=== PATIENT | male | born 1995 | race Caucasian/White ===

== ENCOUNTER 2019-03-08 22:55 | Observation (INO) ==
--- NOTE | 2019-03-08 23:09 | PROVIDER DOCUMENTATION ---
This chart was entered by Anh Frazier Scribe, acting as scribe for Dequan Holt MD. [id number] Abuse/Overdose - General Chief Complaint: Overdose Stated Complaint: possible overdose Time Seen by Provider: 03/08/19 23:01 Source: patient, EMS Allergies/Adverse Reactions: Allergies Allergy/AdvReac Type Severity Reaction Status Date / Time No Known Allergies Allergy Verified 03/08/19 23:01 Home Medications: Home Medication List Medication Instructions Recorded Confirmed Last Taken Type NK [No Home Medications] 03/08/19 03/08/19 Unknown History - History of Present Illness-Drug/Alcohol Nature of Presenting Problem: 23 yom presents w/ems w/cc poss heroin overdose. ems sts pt using heroin, pt family tried to take him somewhere to get help and ran away. pt dad was arrested yest. ems sts pt seems very "jumpy." pt sts uses heroin 1-2hrs ago and was found by pd on . pt was evicted from where he was living, stayed with grandpa until he . pt has visible track castellano left arm. pt smokes 1/2 ppd. This episode of drinking or use began:: 1-3 hours ago Severity: reports: mild - Substance Abuse Substance Use: reports: other (heroin) Review of Systems - Adult - REVIEW OF SYSTEMS - ADULT Constitutional: reports: no symptoms reported Eyes: reports: no symptoms reported Ears, Nose, Mouth & Throat: reports: no symptoms reported Cardiovascular: reports: no symptoms reported Respiratory: reports: no symptoms reported Gastrointestinal: reports: no symptoms reported Genitourinary: reports: no symptoms reported Musculoskeletal: reports: no symptoms reported Integumentary: reports: no symptoms reported Neurological: reports: no symptoms reported Psychiatric: reports: see HPI, alcohol/drug dependence. denies: insomnia, panic attacks, suicidal thoughts Endocrine: reports: no symptoms reported Hematologic/Lymphatic: reports: no symptoms reported Allergic/Immunologic: reports: no symptoms reported All Other Systems: Reviewed and Negative Past History - Adult - PAST MEDICAL HISTORY-ADULT Review of Records: reports: Old Records Reviewed, Nursing Assessment Review, Medications Reviewed, Social history reviewed & non-contributory. Major Childhood Illnesses: reports: denies history Cardiovascular: reports: denies history Respiratory: reports: denies history Gastrointestinal: reports: denies history Obstetrical/Gynecological: reports: denies history Genitourinary: reports: denies history Musculoskeletal: reports: denies history Neurological: reports: denies history Endocrine/Immune: reports: denies history Other Conditions: reports: denies history - IMMUNIZATION STATUS Childhood Immunizations: See Nurse Assessment Flu Vaccine: See Nurse Assessment - FAMILY HISTORY Family History: reviewed, not pertinent - SOCIAL HISTORY Smoking: cigarettes, less than 1 pack/day Provider spent 3-5 mins advising pt. on dangers of tobacco.: Discussed manners to quit use, and f/u contacts for add'l counseling. Substance Use: other (heroin) Living Situation: other (unstable living situation) Physical Exam-General - PHYSICAL EXAM-ADULT Initial Vital Signs Reviewed: Yes - CONSTITUTIONAL General Appearance: appears well, alert, no apparent distress, thin. negative: slow to respond, obtunded, combative - EYES Eyes: PERRL/EOMI, pink conjunctivae - HEAD, EARS, NOSE, MOUTH & THROAT HENMT: normocephalic/atraumatic, moist mucous membranes, normal ENT inspection - NECK Neck: non-tender, full range of motion, supple, normal inspection - RESPIRATORY Respiratory: chest non-tender, lungs clear, normal breath sounds - CARDIOVASCULAR Cardiovascular: normal peripheral pulses, no edema, no gallop, no JVD, no murmur , tachycardia. negative: regular rate, rhythm, JVD, bradycardia - GASTROINTESTINAL (ABDOMEN) Abdominal Exam: normal bowel sounds, non tender, soft - LYMPHATIC Lymphatic: no adenopathy - MUSCULOSKELETAL Back Exam: normal inspection, no CVA tenderness, no vertebral tenderness Extremity: normal range of motion, non-tender, normal inspection Peripheral Pulses: radial (R): 2+, radial (L): 2+ - SKIN Integumentary: normal color, normal turgor, warm/dry, other (track castellano left arm). negative: laceration(s), swelling, tenderness - NEUROLOGIC Neurologic: grossly normal, no motor/sensory deficits - PSYCHIATRIC Psych/Mental Status: normal mood/affect, normal thought content, normal thought process, oriented x 3 Progress - PLAN OF CARE/RESULTS Progress/Plan/Lab Results: Vital Signs - 8 hr 03/08/19 22:56 Temperature 98.1 F Pulse Rate 122 H Respiratory Rate 20 Blood Pressure 127/106 O2 Sat by Pulse Oximetry 97 Laboratory Results - last 24 hr 03/08/19 03/08/19 03/08/19 23:05 23:05 23:05 WBC 8.59 RBC 4.82 Hgb 13.7 L Hct 39.9 L MCV 82.8 MCH 28.4 MCHC 34.3 RDW Std Deviation 13.3 Plt Count 280 MPV 10.7 H Immature Gran % (Auto) 0.2 Neut % (Auto) 61.4 Lymph % (Auto) 24.2 [place] % (Auto) 10.4 H Eos % (Auto) 3.1 Baso % (Auto) 0.7 Immature Gran # (Auto) 0.02 Neut # (Auto) 5.27 Lymph # (Auto) 2.08 [place] # (Auto) 0.89 H Eos # (Auto) 0.27 Baso # (Auto) 0.06 Sodium 140 Potassium 3.7 Chloride 103 Carbon Dioxide 27 Anion Gap 11 BUN 13 Creatinine 1.0 Estimated GFR/1.73 m2 > 60 BUN/Creatinine Ratio 13 Glucose 105 H Calculated Osmolality 280 Calcium 8.7 L Total Bilirubin 0.90 AST 76 H ALT 140 H Alkaline Phosphatase 90 Total Protein 6.9 Albumin 4.4 Globulin 3.0 Albumin/Globulin Ratio 2.0 Salicylates < 3.00 L Urine Opiates Screen Ur Oxycodone Screen Urine Methadone Screen U Propoxyphene Qual Acetaminophen < 1.2 L Ur Barbituates Screen Ur Tricyclics Screen Ur Phencyclidine Scrn Ur Amphetamines Screen U Methamphetamines Scrn U Benzodiazepines Scrn Urine Cocaine Screen U Cannabinoids Screen Plasma/Serum Ethyl Alc 03/09/19 00:05 WBC RBC Hgb Hct MCV MCH MCHC RDW Std Deviation Plt Count MPV Immature Gran % (Auto) Neut % (Auto) Lymph % (Auto) [place] % (Auto) Eos % (Auto) Baso % (Auto) Immature Gran # (Auto) Neut # (Auto) Lymph # (Auto) [place] # (Auto) Eos # (Auto) Baso # (Auto) Sodium Potassium Chloride Carbon Dioxide Anion Gap BUN Creatinine Estimated GFR/1.73 m2 BUN/Creatinine Ratio Glucose Calculated Osmolality Calcium Total Bilirubin AST ALT Alkaline Phosphatase Total Protein Albumin Globulin Albumin/Globulin Ratio Salicylates Urine Opiates Screen PRESUMPTIVE POSITIVE A Ur Oxycodone Screen NONE DETECTED Urine Methadone Screen NONE DETECTED U Propoxyphene Qual NONE DETECTED Acetaminophen Ur Barbituates Screen NONE DETECTED Ur Tricyclics Screen NONE DETECTED Ur Phencyclidine Scrn NONE DETECTED Ur Amphetamines Screen PRESUMPTIVE POSITIVE A U Methamphetamines Scrn PRESUMPTIVE POSITIVE A U Benzodiazepines Scrn NONE DETECTED Urine Cocaine Screen NONE DETECTED U Cannabinoids Screen NONE DETECTED Plasma/Serum Ethyl Alc Orders Category Date Time Status Cardiac Monitoring DIRECTED Care 03/08/19 23:01 Active Saline Loc NOW Care 03/08/19 23:03 Active ACETAMINOPHEN [TDM] Stat Lab 03/08/19 23:05 Completed ALCOHOL BLOOD Stat Lab 03/08/19 23:05 Completed CBC WITH ELECTRONIC DIFF [HEME] Stat Lab 03/08/19 23:05 Completed CMP [COMPREHENSIVE METABOLIC PANEL] [CHEM] Stat Lab 03/08/19 23:05 Completed SALICYLATES [TDM] Stat Lab 03/08/19 23:05 Com[address] URINE DRUG SCREEN PL Stat Lab 03/09/19 00:05 Completed Oxygen Device Stat Oth 03/08/19 23:02 Active Pulse Oximetry Stat Oth 03/08/19 23:02 Active EKG [EKG] Stat Ther 03/08/19 23:01 Draft Result Diagrams: 03/08/19 23:05 03/08/19 23:05 - REASSESSMENT Reassessment #1 Time Reassessed: 01:45 Status: improving Reassessment Comment: heart rate is improving, oxygen sat over 93% on room air - EKG 1 Time of EKG reading by physician:: 23:11 EKG Read and Signed by:: Dequan Holt EKG Interpretation (*Must complete 3 of following elements*): Abnormal (borderline) Rate: 96 (possible elft atrial enlargement ) Rhythm: NSR [place]: normal QRS: RBB (incomplete) MO Interval: normal ST Wave: normal - CONSULTS/PCP/HOSPITALIST Notification #1 *Consult/PCP/Hospitalist*: Dr. Ewing, hospitalist Time Discussed: 02:00 Consult Disposition: Admit Departure - Departure Date of Disposition Decision: 03/09/19 Time of Disposition Decision: 02:01 DIAGNOSIS: Substance abuse Opiate overdose Qualifiers: Encounter type: initial encounter Injury intent: accidental or unintentional Qualified Code(s): T40.601A - Poisoning by unspecified narcotics, accidental (unintentional), initial encounter Disposition: ADMITTED INPATIENT 09 Certified Medical Emergency: Emergent Condition: Stable Referrals and Follow-Ups: None,PCP [Primary Care Provider] - - Critical Care Note This patient required my direct & personal management of CC.: No Attestation - Physician/ LIZZETH Attestation Patient care was provided by Advanced Practice Provider:: No The physician spent face to face time with patient:: Yes Advanced Practice Provider documentation review:: Supervising physician onsite and consulted in the evaluation and care of this patient. The physician did have a face to face encounter with the patient. This chart was documented by the indicated scribe, (Anh Frazier, Janene) and accurately reflects the services I performed and decisions made by me, Dequan Holt MD, as attested by the provider's signature.
[2019-03-08 23:19] LABS: BASO# 0.06 X1000 (0.0-0.2); BASO% 0.7 % (0.0-0.8); EOS# 0.27 X1000 (0.0-0.7); EOS% 3.1 % (0.0-10.0); HEMATOCRIT 39.9 % (42.0-52.0); HEMOGLOBIN 13.7 g/dL (14.0-18.0); IMM GRAN# 0.02 X1000 (0.0-0.04); IMM GRAN% 0.2 % (0.0-0.5); LYMPH# 2.08 X1000 (1.2-3.4); LYMPH% 24.2 % (20.5-51.1); MCH 28.4 PG (27-31); MCHC 34.3 g/dL (33-37); MCV 82.8 FL (81-99); MONO# 0.89 X1000 (0.11-0.59); MONO% 10.4 % (1.7-9.3); MPV 10.7 FL (7.4-10.4); NEUT# 5.27 X1000 (1.4-6.5); NEUT% 61.4 % (42.2-75.2); PLT 280 X1000 (130-400); RBC 4.82 XMIL (4.7-6.1); RDW 13.3 % (11.5-14.5); WBC 8.59 X1000 (4.8-10.8)
--- NOTE | 2019-03-08 23:32 | EKG Report ---
Test Performed on : 03/08/2019 11:11:59 PM Test Reason : pain Blood Pressure : / mmHG Vent. Rate : 096 BPM Atrial Rate : 096 BPM P-R Int : 126 ms QRS Dur : 102 ms QT Int : 330 ms P-R-T Axes : 076 088 070 degrees QTc Int : 416 ms Normal sinus rhythm. Possible Left atrial enlargement Incomplete right bundle branch block Borderline ECG No previous ECGs available Unconfirmed Result
[2019-03-08 23:37] LABS: ACETAMINOPHEN < 1.2 ug/mL (10-30); AGAP 11; ALBUMIN 4.4 g/dL (3.5-5.0); ALKALINE PHOSPHATASE 90 U/L (32-122); BUN 13 mg/dL (8-22); CALCIUM 8.7 mg/dL (8.8-10.2); CHLORIDE 103 mmol/L (98-107); COSMO 280; ESTIMATED GFR > 60; GLUCOSE 105 mg/dL (70-104); GOT 76 U/L (10-34); GPT 140 U/L (10-44); POTASSIUM 3.7 mmol/L (3.5-5.1); SALICYLATES < 3.00 mg/dL (3-10); SODIUM 140 mmol/L (136-145); TCO2 27 mmol/L (25-35); TOTAL PROTEIN 6.9 g/dL (6.3-8.3)
[2019-03-09 01:15] LABS: UR AMPHETAMINES QUAL PRESUMPTIVE POSITIVE (NONE DETECT)
[2019-03-09 01:16] LABS: UR BARBITUATES QUAL NONE DETECTED (NONE DETECT); UR BENZODIAZEPIN QUAL NONE DETECTED (NONE DETECT); UR CANNABINOIDS QUAL NONE DETECTED (NONE DETECT); UR COCAINE QUAL NONE DETECTED (NONE DETECT); UR METHADONE QUAL NONE DETECTED (NONE DETECT); UR METHAMPHETAMINE QUAL PRESUMPTIVE POSITIVE (NONE DETECT); UR OPIATES QUAL PRESUMPTIVE POSITIVE (NONE DETECT); UR OXYCODONE QUAL NONE DETECTED (NONE DETECT); UR PCP QUAL NONE DETECTED (NONE DETECT); UR PROPOXYPHENE QUAL NONE DETECTED (NONE DETECT); UR TCA QUAL NONE DETECTED (NONE DETECT)
[2019-03-09 15:13] VITALS: BP 110/70
--- NOTE | 2019-03-09 15:19 | DISCHARGE SUMMARY ---
ADMISSION DATE: 03/08/2019 DISCHARGE DATE: 03/09/2019 DIAGNOSES: 1. Heroin use, possible overdose, unintentional. 2. Amphetamine, methamphetamine, and opiate positive urine drug screen. 3. Tobacco use and abuse. DIAGNOSTICS: EKG revealed sinus rhythm at a rate of 96. HOSPITAL COURSE: Mr. Pizarro is a 23-year-old gentleman with a longstanding history of heroin, as well as other recreational drug abuse. He presented to the emergency room via EMS after his brother called 911 reportedly because as the patient was walking the streets high on heroin. The patient reportedly was evidently evicted from a prior residence. He lived with his grandfather until his grandfather , and he has essentially been homeless since. The patient slept through the night. He has had no complaints. Vital signs have been stable with blood pressures being in the 120s to 130s/80s to 90s. Heart rates have primarily been in the 60 to 80 range. He has been afebrile. The patient, this afternoon, is awake, alert, he has eaten, he has been up walking in the emergency room with no difficulties. The only complaint he has is that he wants to sleep. The patient's brother is here from [place]. He stated that they have had an older brother who had an addiction problem who was in a rehab around [place]. They have talked to the rehab and are taking the patient with them to their home to try to assist him in getting help. DISCHARGE VITAL SIGNS: Blood pressure is 111/63 with a heart rate of 81, respirations 16, temperature 98.9 degrees oral, with room air saturations 98% to 100%. DISCHARGE MEDICATIONS: None. DISPOSITION: The patient is being discharged with his two brothers in stable condition, hopefully to a rehab in [place]. TIME SPENT: This is a greater than 30-minute discharge. Dictated by GIORGIO Azar for Heriberto Ewing MD cc: GIORGIO Azar MD MTDD
--- NOTE | 2019-03-09 20:23 | HISTORY AND PHYSICAL ---
CHIEF COMPLAINT: Possible heroin overdose, unintentional. HISTORY OF PRESENT ILLNESS: This is a 23-year-old gentleman with a long history of heroin and polysubstance drug abuse. He was brought into the Emergency Room via EMS after being called by his brother. Evidently, the brother states he has not seen the patient sober until today for a few years. He was with the brother last night trying to talk him into coming back to [place] so that they could get him into rehab. The patient shot up with heroin and left on foot walking down the middle of the road to go get a drink. It was then that the brother called 911. EMS reports finding the patient walking down the middle of the road. He was brought into the Emergency Room. At the time of arrival to the er he was lethargic, sleepy. The patient has a long history of drug abuse and currently he is homeless as he lived with his grandfather and his grandfather . He denies any suicidal ideation. He stated he just wanted to get high. PAST MEDICAL HISTORY: Heroin and polysubstance abuse. PAST SURGICAL HISTORY: Denies. SOCIAL HISTORY: He has polysubstance abuse. He had smokes about half a pack a day. He denies any alcohol use. REVIEW OF SYSTEMS: Discussed with patient with pertinent positives stated in HPI. He denied any syncope, dizziness, chest pain, palpitations, shortness of breath, cough, fever, chills, nausea, vomiting, diarrhea, constipation, black or bloody vomitus or stools, hematuria, dysuria, frequency, urgency. PHYSICAL EXAMINATION: GENERAL: This is a 23-year-old gentleman who is lying in the stretcher in the emergency room. He is sleepy, but he does wake when his name is called. VITAL SIGNS: Blood pressure is 131/97, heart rate of 68, respirations 16, temperature 98.5, with room air sats 99%. CARDIOVASCULAR: Regular rate and rhythm. S1 and S2 appreciated. He has no lower extremity edema. Peripheral pulses are palpable x 4 extremities. PULMONARY: Breath sounds clear. No increased work of breathing noted. GASTROINTESTINAL: Abdomen is soft, nontender, nondistended with bowel sounds in all four quadrants. GENITOURINARY: No CVA or suprapubic tenderness. NEUROLOGIC: He is sleepy. He is cooperative. SKIN: Warm and dry. He does have track castellano noted to his left arm. LABORATORY: WBC is 8.5, with hemoglobin 13.7, hematocrit 39.9 and platelets of 280,000. Sodium 140, potassium 3.7, BUN of 13, creatinine 1, with a glucose of 105. Urine drug screen is presumptive positive for opiates, amphetamines and methamphetamines. Blood alcohol is none detected. ASSESSMENT AND PLAN: 1. Heroin use. Possible unintentional overdose. 2. Amphetamine, methamphetamine and opiate positive urine drug screen. 3. Tobacco use and abuse. PLAN: The patient will be admitted to the hospital, placed on telemetry. We will monitor him until he does wake. Family members are at bedside. Hopefully, once he wakes he will agree to going to rehab as his brother is here and he is very concerned and very motivated to help Mr. Pizarro. Discussed with Dr Ewing Further treatments pending hospital course. Dictated by GIORGIO Azar for Heriberto Ewing MD cc: GIORGIO Azar MD [facility]
--- NOTE | 2019-03-10 04:27 | HISTORY AND PHYSICAL ---
ADDENDUM: Patient seen and examined by myself. Full note dictated and discussed with nurse practitioner. Patient presented to the hospital with what appears to be an intentional drug overdose without any suicide attempt. He was admitted to the hospital in the ER. Please see full cc: Heriberto Ewing MD MTDD
--- NOTE | 2019-03-10 05:13 | DISCHARGE SUMMARY ---
ADMISSION DATE: 03/08/2019 DISCHARGE DATE: 03/09/2019 DISCHARGE DIAGNOSIS: 1. Intentional drug overdose without suicidal intent. 2. Somnolence, resolved. 3. Altered mental status, resolved. 4. Chronic tobacco abuse. CONSULTATIONS: None. PROCEDURES: None. BRIEF HOSPITAL COURSE: The patient is a 23-year-old male who presented to the hospital after having overdosed on heroin. He apparently ran away after the family noted that they were going to attempt to get him help. I believe his father was just recently arrested. The patient was found unresponsive and brought to the ER. Thankfully, after his heroin wore off he is currently awake, alert. He is in no distress. Overall, he is back to normal. He ate a full diet. Therefore, he will be discharged home. DISPOSITION: The patient will be discharged home. We did offer him intervention. He declined. He is on no chronic medications. No prescriptions were written. Discussed with him that he needs outpatient life counseling and drug counseling, certainly would benefit from inpatient counseling but he has declined. Discussed with him the perils of smoking as well as drug abuse. cc: Heriberto Ewing MD MTDD
== END 2019-03-09 15:14 | disposition home or self-care (01) ==
LOC: P.ED 22:55 → P.EDIPHOLD 22:55
PROVIDERS: ATTEND Family Medicine